=== PATIENT | male | born 1990 | race Caucasian/White ===

== ENCOUNTER 2022-12-28 21:53 | Emergency (ER) | payer SELFPAY ==
[2022-12-28] VITALS (7 sets, daily range): BP systolic 130–154; BP diastolic 78–98; PULSE 92–132; RESP 18–22; TEMP 36.7–37.1; O2SAT 96–100
--- NOTE | 2022-12-28 21:58 | ECG_ITS ---
Measurements Intervals [place] Rate: 114 P: 66 AR: 123 QRS: 36 QRSD: 101 T: 30 QT: 337 QTc: 464 Interpretive Statements SINUS TACHYCARDIA ABNORMAL RHYTHM ECG NO PREVIOUS ECG AVAILABLE FOR COMPARISON Electronically Signed On 12-29-2022 9:16:37 CDT by Shan Randolph M.D.
[2022-12-28] MEDS: ALPRAZolam (*CRX) 0.5 MG TABLET PO (22:13)
[2022-12-28] MEDS: SODIUM CHLORIDE 0.9% IV 1,000 ML 999 ML IV CONT (22:17)
--- NOTE | 2022-12-28 22:17 | PC.NURSE ---
Suri, in lab was called and made aware of orders at [id number]
[2022-12-28 22:34] LABS: Basophils Absolute Auto 0.07 K/mm3 (0.00-0.10); Basophils Percent Auto 1.2 % (0.0-1.0); Eosinophils Absolute Auto 0.15 K/mm3 (0.02-0.50); Eosinophils Percent Auto 2.5 % (1.0-6.0); Hematocrit 42.4 % (40.0-54.0); Hemoglobin 14.8 g/dL (14.0-18.0); Immature Granulocyte Absolute 0.02 K/mm3 (0.00-0.00); Immature Granulocyte Percent A 0.3 % (0.0-0.0); Lymphocytes Absolute Auto 1.65 K/mm3 (1.10-4.50); Lymphocytes Percent Auto 27.2 % (18.0-42.0); Mean Corpuscular HGB Conc 34.9 g/dL (32.0-36.0); Mean Corpuscular Hemoglobin 32.4 pg (27.0-31.0); Mean Corpuscular Volume 92.8 fL (78.0-102.0); Mean Platelet Volume 8.4 fl (8.7-11.0); Monocytes Absolute Auto 0.64 K/mm3 (0.10-0.90); Monocytes Percent Auto 10.6 % (2.0-11.0); Neutrophils Absolute Auto 3.5 K/mm3 (1.7-7.2); Neutrophils Percent Auto 58.2 % (50.0-70.0); Platelet Count Result 348 K/mm3 (150-420); Red Blood Count 4.57 M/mm3 (4.70-6.10); Red Cell Distribution Width 12.5 % (11.6-14.4); White Blood Count 6.1 K/mm3 (4.8-10.8)
[2022-12-28] MEDS: METOPROLOL TARTRATE 50 MG TAB PO (22:38)
[2022-12-28 22:52] LABS: Alanine Aminotransferase 51 U/L (16-63); Albumin Level 4.1 g/dL (3.4-5.0); Alkaline Phosphatase 84 U/L (46-116); Anion Gap 15 mmol/L (8-16); Aspartate Amino Transferase 35 U/L (15-37); Bilirubin,Total 0.7 mg/dL (0.00-1.00); Blood Urea Nitrogen 6 mg/dL (7-18); Calcium 8.7 mg/dL (8.5-10.1); Carbon Dioxide 24 mmol/L (21-32); Chloride 100 mmol/L (98-108); Estimated CRCL calculation 104 ml/min; Estimated Glomerular Filt Rate > 60; Glucose 83 mg/dL (70-99); Osmolality Calculated 284 mOsm/kg (285-295); Sodium 139 mmol/L (136-145); Total Protein 7.1 g/dL (6.4-8.2); Troponin I 5.7 ng/L (0.00-60.4)
--- NOTE | 2022-12-28 23:02 | ED.ARRPALP ---
HPI - Arrhythmia/Palpitations General Chief Complaint: Arrhythmia/Palpitations Stated Complaint: Anxiety Source: patient and family Mode of arrival: ambulatory Limitations: no limitations History of Present Illness HPI narrative: this is a 32-year-old male presents with rapid heart rate around 114 with some anxiety, with no chest pain no shortness of breath no pain no fever chills. The patient states that he has been on antidepressants and has a history anxiety and depression but has been out of his antianxiety and antidepressants. complaint: rapid heart beat Onset (ago): hour(s) Duration: constant Severity: mild Context: occurred during rest Associated symptoms: anxiety Related Data Allergies Allergy/AdvReac Type Severity Reaction Status Date / Time No Known Allergies Allergy Verified 12/28/22 21:58 Review of Systems Review of Systems: All systems reviewed & are unremarkable except as noted in HPI and below PMFSH Past Medical History Medical History Depression with anxiety Exam Const: General: healthy appearing Nutritional Appearance: well nourished Orientation/consciousness: patient oriented x3 Limitations: no limitations Neck: Neck: normal visual inspection, no lymphadenopathy and no meningeal signs Chest: Chest palpation & inspection: normal inspection of the chest Resp: Effort & Inspection: normal respiratory effort Auscultation: clear to auscultation bilaterally Cardio: Rate: tachycardic Rhythm: regular rhythm GI: GI Palp: Yes Soft to palpation Skin: General skin exam: normal color Rashes: no rashes Wounds: no wounds Neuro: General: patient oriented x3 and moves all extremities Extrem: General: normal to inspection and no clubbing, cyanosis or edema Psych: Mental Status: mental status grossly normal Affect: Anxious affect present Course Course Emergency Course: EKG showed sinus tachycardia with rate of 14, patient's blood pressure was elevated at 140 7/95, patient anxious and received 0.5mg of Xanax and patient after reassessment felt much better but heart rate still about 105 and received a dose of 50mg metoprolol. Patient had lab work including troponins that was negative, his CMP showed that his potassium was 3.0 and patient received a dose of p.o. potassium. Vital Signs Vital signs: Vital Signs Temperature 37.1 C 12/28/22 21:55 Pulse Rate 116 H 12/28/22 21:55 Respiratory Rate 19 12/28/22 21:55 Blood Pressure 147/95 H 12/28/22 21:55 Pulse Oximetry 99 12/28/22 21:55 Oxygen Delivery Room Air 12/28/22 21:55 Temperature 37.1 C 12/28/22 21:55 Pulse Rate 97 12/28/22 22:53 Respiratory Rate 22 H 12/28/22 22:53 Blood Pressure 136/78 12/28/22 22:53 Pulse Oximetry 96 12/28/22 22:53 Oxygen Delivery Room Air 12/28/22 22:53 MDM - Arrhythmia/Palpitations Lab Data 12/28/22 22:30 12/28/22 22:30 Labs: Lab Results 12/28/22 Range/Units 22:30 WBC 6.1 (4.8-10.8) K/mm3 RBC 4.57 L (4.70-6.10) M/mm3 Hgb 14.8 (14.0-18.0) g/dL Hct 42.4 (40.0-54.0) % MCV 92.8 (78.0-102.0) fL MCH 32.4 H (27.0-31.0) pg MCHC 34.9 (32.0-36.0) g/dL RDW 12.5 (11.6-14.4) % Plt Count 348 (150-420) K/mm3 MPV 8.4 L (8.7-11.0) fl Immature Gran % (Auto) 0.3 H (0.0-0.0) % Neut % (Auto) 58.2 (50.0-70.0) % Lymph % (Auto) 27.2 (18.0-42.0) % [place] % (Auto) 10.6 (2.0-11.0) % Eos % (Auto) 2.5 (1.0-6.0) % Baso % (Auto) 1.2 H (0.0-1.0) % Lymph # (Auto) 1.65 (1.10-4.50) K/mm3 [place] # (Auto) 0.64 (0.10-0.90) K/mm3 Eos # (Auto) 0.15 (0.02-0.50) K/mm3 Baso # (Auto) 0.07 (0.00-0.10) K/mm3 Abs Immat Gran (auto) 0.02 H (0.00-0.00) K/mm3 Absolute Neuts (auto) 3.5 (1.7-7.2) K/mm3 Absolute Nucleated RBC 0.00 (0.00-0.00) K/mm3 Nucleated RBC % 0.0 (0-0.0) % Sodium 139 (136-145) mmol/L Potassium 3.0 L (3.5-5.1) mmol/L Chloride
[2022-12-28] MEDS: POTASSIUM BICARBONATE 25 MEQ TABEF 50 MEQ PO (23:05)
== END 2022-12-28 23:17 | disposition home or self-care (01) ==
PROVIDERS: Emergency Provider Emergency Medicine
DX: R00.2 Palpitations (principal); F41.9 Anxiety disorder, unspecified; E87.6 Hypokalemia; F32.A Depression, unspecified
CPT/HCPCS: 36415; 80053; 84484; 85025; 93005; 96360; 99284; A9270; J7030

== ENCOUNTER 2024-02-14 14:43 | Emergency (ER) | payer OTHER, SELFPAY ==
--- NOTE | ~2024-02-14 | CT_ITS ---
EXAMINATION: CT abdomen pelvis w con DATE: 02/14/2024 16:19 INDICATION: epigastric abdominal pain/nausea/vomiting/diarrhea x1 week TECHNIQUE: Computed tomography (CT) of the abdomen and pelvis was performed with 100 mL Omnipaque-350 intravenous contrast. Automated exposure control and iterative reconstruction technique were employe d. The dose-length product was 268.79 mGy-cm. COMPARISON: None. FINDINGS: Lower thorax: Right lower lobe granuloma/hamartoma. Liver: Normal. Biliary/Gallbladder: Mildly distended gallbladder. No wall thickening or inflammatory change. No ston es detected. No bile duct dilation. Pancreas: No mass or duct dilation. Spleen: Multiple subcentimeter hypodensities likely representing cysts or hemangiomas. Adrenals:No mass. Kidneys: No suspicious mass, obstructing stone, or hydronephrosis. GI tract: Mild distal esophageal and gastric wall edema. No small or large bowel dilation. Appendix i s not confidently identified and may be surgically absent. No inflammatory process in the right lower quadrant. Mesentery/Peritoneum: No ascites, mass, or free air. Retroperitoneum: No mass. Pelvis: Pelvic organs are within normal limits. Soft Tissues: Small fat-containing right inguinal hernia. Large right hydrocele. Bones: No acute osseous finding. IMPRESSION: Gallbladder hydrops, may be secondary to fasting or obstruction. Correlate with biliary labs and symp toms of right upper quadrant pain. Mild esophagitis/gastritis. Large right hydrocele. Reviewed, dictated and finalized at location [facility] OF ENGLISH IMPRESSION: Gallbladder hydrops, may be secondary to fasting or obstruction. Correlate with biliary labs and symptoms of right upper quadrant pain. Mild esophagitis/gastritis. Large right hydrocele.
[2024-02-14 14:43] VITALS: BP 129/94; PULSE 102; RESP 18; TEMP 36.5; O2SAT 98
--- NOTE | 2024-02-14 14:54 | ECG_ITS ---
Test Date: 2024-02-14 15:11:39 Measurements Intervals [place] Rate: 92 P: 67 DE: 145 QRS: 56 QRSD: 98 T: 48 QT: 335 QTc: 414 Interpretive Statements SINUS RHYTHM BASELINE ARTIFACT- I, III, AVR, AVL, AVF, V1, V4-V6 NORMAL ECG No previous ECG available for comparison Electronically Signed On 02-14-2024 16:38:41 DECORATING [employer]PERATOR by Elpidio Ovalles D.O.
[2024-02-14] MEDS: PANTOPRAZOLE SODIUM IV 40 MG VIAL IV PUSH (15:21)
[2024-02-14] MEDS: MORPHINE SULFATE (*CRX) 4 MG/ML INJ IV PUSH (15:23)
[2024-02-14] MEDS: SODIUM CHLORIDE 0.9% IV 1,000 ML 999 ML IV CONT (15:23)
[2024-02-14] MEDS: ONDANSETRON INJ 4 MG/2 ML VIAL IV PUSH (15:24)
[2024-02-14 15:37] LABS: Basophils Absolute Auto 0.03 K/mm3 (0.00-0.10); Basophils Percent Auto 0.5 % (0.0-1.0); Eosinophils Absolute Auto 0.04 K/mm3 (0.02-0.50); Eosinophils Percent Auto 0.6 % (1.0-6.0); Hematocrit 45.8 % (40.0-54.0); Hemoglobin 15.6 g/dL (14.0-18.0); Immature Granulocyte Absolute 0.01 K/mm3 (0.00-0.00); Immature Granulocyte Percent A 0.2 % (0.0-0.0); Lymphocytes Absolute Auto 1.87 K/mm3 (1.10-4.50); Lymphocytes Percent Auto 29.9 % (18.0-42.0); Mean Corpuscular HGB Conc 34.1 g/dL (32-36); Mean Corpuscular Hemoglobin 31.6 pg (27.0-31.0); Mean Corpuscular Volume 92.7 fL (78.0-102.0); Mean Platelet Volume 9.3 fl (8.7-11.0); Monocytes Absolute Auto 0.43 K/mm3 (0.10-0.90); Monocytes Percent Auto 6.9 % (2.0-11.0); Neutrophils Absolute Auto 3.88 K/mm3 (1.70-7.20); Neutrophils Percent Auto 61.9 % (50.0-70.0); Platelet Count Result 292 K/mm3 (150-420); Red Blood Count 4.94 M/mm3 (4.70-6.10); Red Cell Distribution Width 12.1 % (11.6-14.4); White Blood Count 6.3 K/mm3 (4.8-10.8)
--- NOTE | 2024-02-14 15:37 | PC.NURSE ---
pts brother at nurses station. states pt not feeling well after medications administered. explained all medications to pt and confirmed no allergies. explained all medications, risks of side effects to brother, voiced understanding.
[2024-02-14 15:41] LABS: Add Urine Microscopic? YES; Appearance Urine Clear (Clear); Bilirubin Urine Negative (Negative); Blood Urine Negative (Negative); Color Urine Yellow (Yellow); Glucose Urine UA Negative (Negative); Ketones Urine Trace (Negative); Leukocyte Esterase Ur Negative LEU/UL (Negative); Nitrate Urine Negative (Negative); Protein Urine 1+ (Negative); Urobilinogen Urine 0.2 mg/dL (0.2-1.0)
[2024-02-14 15:44] LABS: Amphetamine Screen Urine Negative (Negative); Barbiturate Screen Urine Negative (Negative); Benzodiazepines Screen Urine Negative (Negative); Cannabinoid Screen Urine Positive (Negative); Cocaine Screen Urine Negative (Negative); Methadone Screen Urine Negative (Negative); Opiate Screen Urine Negative (Negative); Phencyclidine Screen Urine Negative (Negative)
[2024-02-14 15:48] LABS: INR 0.9; Partial Thromboplastin Time 28.5 Sec (23.9-30.70); Prothrombin Time 10.5 Seconds (9.50-12.1)
[2024-02-14 15:50] LABS: Alanine Aminotransferase 60 U/L (16-63); Alkaline Phosphatase 89 U/L (46-116); Anion Gap 11 mmol/L (4-12); Aspartate Amino Transferase 53 U/L (15-37); Bilirubin,Total 0.6 mg/dL (0.00-1.00); Blood Urea Nitrogen 7 mg/dL (7-18); Calcium 8.4 mg/dL (8.5-10.1); Carbon Dioxide 27 mmol/L (21-32); Chloride 101 mmol/L (98-108); Estimated CRCL calculation 98 ml/min; Estimated Glomerular Filt Rate > 60; Glucose 91 mg/dL (70-99); Lipase 32 U/L (16-77); Osmolality Calculated 286 mOsm/kg (285-295); Potassium 3.7 mmol/L (3.5-5.1); Sodium 139 mmol/L (136-145); Total Protein 7.4 g/dL (6.4-8.2)
[2024-02-14 15:57] LABS: Ethanol 307 mg/dL (0-6)
[2024-02-14 15:58] LABS: Lactic Acid Reflex 1.9 mmol/L (0.4-2.0)
[2024-02-14 16:03] LABS: Mucus Urine Heavy /lpf
--- NOTE | 2024-02-14 16:06 | PC.NURSE ---
pt to xray per wheelchair with xray staff.
--- NOTE | 2024-02-14 16:14 | PC.NURSE ---
pt return to room from xray
[2024-02-14 16:24] VITALS: BP 141/64; PULSE 117; RESP 18; O2SAT 93
[2024-02-14 16:30] VITALS: BP 127/84; PULSE 84; RESP 20; TEMP 36.8; O2SAT 94
[2024-02-14 16:31] VITALS: O2SAT 95
--- NOTE | 2024-02-14 16:35 | ED_ITS ---
HPI - Nausea/Vomiting/Diarrhea General Chief complaint: Nausea/Vomiting/Diarrhea Stated complaint: abdominal pain Time Seen by Provider: 02/14/24 14:47 Source: patient Mode of arrival: ambulatory Limitations: no limitations History of Present Illness HPI Narrative: this is a 33-year-old male with a history of chronic alcohol abuse presents with nausea vomiting and epigastric abdominal pain has been ongoing for the last couple of weeks and others currently no fever chills no chest pain no shortness of breath no diarrhea or constipation no flank pain no hematuria. MD elicited complaint: nausea, vomiting and abdominal pain Onset (ago): week(s) Description of vomiting: watery Related Data Allergies Allergy/AdvReac Type Severity Reaction Status Date / Time No Known Allergies Allergy Verified 12/28/22 21:58 Review of Systems 2 Review of Systems: All systems reviewed & are unremarkable except as noted in HPI and below PMFSH Past Medical History Medical History Depression with anxiety Exam Const: General: no acute distress Nutritional Appearance: well nourished Orientation/consciousness: patient oriented x3 Limitations: no limitations Eyes: Conjunctivae: conjunctivae normal Neck: Neck: normal visual inspection, no lymphadenopathy and no meningeal signs Chest: Chest palpation & inspection: normal inspection of the chest Resp: Effort & Inspection: normal respiratory effort Auscultation: clear to auscultation bilaterally Cardio: Rate: regular rate Rhythm: regular rhythm GI: GI Palp: Yes Soft to palpation Auscultation: normal bowel sounds : General: Yes bladder normal to palpation Urinary Catheter: Urinary Catheter: patent and draining Back/Spine/Pelvis: Back: no CVA tenderness Skin: General skin exam: normal color Rashes: no rashes Wounds: no wounds Neuro: General: patient oriented x3, moves all extremities, no meningeal signs and no focal motor deficits Course Course Emergency Course: CT scan shows some esophagitis and gastritis, alcohol level as elevated with a normal lipase patient received morphine IV Zofran and IV Protonix. Labs reviewed showed within normal range liver function test and total bilirubin in the normal range. Vital Signs Vital signs: Vital Signs Temperature 36.5 C 02/14/24 14:43 Pulse Rate 102 H 02/14/24 14:43 Respiratory Rate 18 02/14/24 14:43 Blood Pressure 129/94 H 02/14/24 14:43 Pulse Oximetry 98 02/14/24 14:43 Oxygen Delivery Room Air 02/14/24 14:43 Temperature 36.5 C 02/14/24 14:43 Pulse Rate 117 H 02/14/24 16:24 Respiratory Rate 18 02/14/24 16:24 Blood Pressure 141/64 H 02/14/24 16:24 Pulse Oximetry 93 02/14/24 16:24 Oxygen Delivery Room Air 02/14/24 14:43 MDM - Nausea/Vomiting/Diarrhea Lab Data 02/14/24 15:24 02/14/24 15:24 Labs: Lab Results 02/14/24 Range/Units 15:24 WBC 6.3 (4.8-10.8) K/mm3 RBC 4.94 (4.70-6.10) M/mm3 Hgb 15.6 (14.0-18.0) g/dL Hct 45.8 (40.0-54.0) % MCV 92.7 (78.0-102.0) fL MCH 31.6 H (27.0-31.0) pg MCHC 34.1 (32-36) g/dL RDW 12.1 (11.6-14.4) % Plt Count 292 (150-420) K/mm3 MPV 9.3 (8.7-11.0) fl Immature Gran % (Auto) 0.2 H (0.0-0.0) % Neut % (Auto) 61.9 (50.0-70.0) % Lymph % (Auto) 29.9 (18.0-42.0) % [place] % (Auto) 6.9 (2.0-11.0) % Eos % (Auto) 0.6 L (1.0-6.0) % Baso % (Auto) 0.5 (0.0-1.0) % Lymph # (Auto) 1.87 (1.10-4.50) K/mm3 [place] # (Auto) 0.43 (0.10-0.90) K/mm3 Eos # (Auto) 0.04 (0.02-0.50) K/mm3 Baso # (Auto) 0.03 (0.00-0.10) K/mm3 Abs Immat Gran (auto) 0.01 H (0.00-0.00) K/mm3 Absolute Neuts (auto) 3.88 (1.70-7.20) K/mm3 Absolute Nucleated RBC 0.00 (0.00-0.00) K/mm3 Nucleated RBC % 0.0 (0-0.0) % PT 10.5 (9.50-12.1) Seconds INR 0.9 APTT 28.5 (23.9-30.70) Sec Sodium 139 (136-145) mmol/L Potassium 3.7 (3.5-5.1) mmol/L Chloride 101 (98-108) mmol/L Carbon Dioxide 27 (21-32) mmol/L Anion Gap 11 (4-12) mmol/L BUN 7 (7-18) mg/dL Creatinine 0.82 (0.70-1.30) mg/dL Estim Creat Clear Calc 98 ml/min Estimated GFR > 60 (59 - ) Glucose 91 (70-99) mg/dL Calculated Osmolality 286 (285-295) mOsm/kg Lactic Acid 1.9 (0.4-2.0) mmol/L Calcium 8.4 L (8.5-10.1) mg/dL Total Bilirubin 0.6 (0.00-1.00) mg/dL AST 53 H (15-37) U/L ALT 60 (16-63) U/L Alkaline Phosphatase 89 (46-116) U/L Total Protein 7.4 (6.4-8.2) g/dL Albumin 4.0 (3.4-5.0) g/dL Lipase 32 (16-77) U/L Urine Color Yellow (Yellow) Urine Appearance Clear (Clear) Urine pH 7.0 (5.0-8.0) Ur Specific [place] 1.020 (1.010-1.020) Urine Protein 1+ H (Negative) Urine Glucose (UA) Negative (Negative) Urine Ketones Trace H (Negative) Ur Blood (Man) Negative (Negative) Urine Nitrate Negative (Negative) Urine Bilirubin Negative (Negative) Urine Urobilinogen 0.2 (0.2-1.0) mg/dL Leukocyte Esterase Rfl Negative (Negative) MILO/UL Urine Mucus Heavy H /lpf Urine Opiates Screen Negative (Negative) Urine Methadone Screen Negative (Negative) Ur Barbiturates Screen Negative (Negative) Ur Phencyclidine Scrn Negative (Negative) Ur Amphetamine Screen Negative (Negative) U Benzodiazepines Scrn Negative (Negative) Urine Cocaine Screen Negative (Negative) U Cannabinoids Screen Positive A (Negative) Ethyl Alcohol 307 H* (0-6) mg/dL Critical Care Time Critical Care Time Critical Care Time: No Discharge Plan Discharge Clinical Impression: Esophagitis Gastritis Qualifiers: Gastritis type: alcoholic Chronicity: acute Gastritis bleeding: without bleeding Qualified Code(s): K29.20 - Alcoholic gastritis without bleeding Patient Disposition: Home, Self-Care Condition: Stable Instructions: Antibiotic Form, Gastritis (ED), Esophagitis (ED) Additional Instructions: advised take medication as prescribed and follow up with primary within 1 week for further evaluation and treatment. Prescriptions: New ondansetron 4 mg tablet,disintegrating 4 mg PO Q6H PRN (Reason: nausea and vomiting) Qty: 14 0RF pantoprazole [Protonix] 40 mg tablet,delayed release (DR/EC) 40 mg PO QAM 28 Days Qty: 28 0RF Follow-up/Referrals: UNKNOWN,DOCTOR [Primary Care Provider] - Time of Disposition: 16:40
--- NOTE | 2024-02-14 16:51 | PC.NURSE ---
dr referral list given to pt.
--- NOTE | 2024-02-16 12:26 | PC.NURSE ---
PRELIMINARY BLOOD CULTURE: NO GROWTH TO DATE.
== END 2024-02-14 16:44 | disposition home or self-care (01) ==
PROVIDERS: Emergency Provider Emergency Medicine
DX: K20.90 Esophagitis, unspecified without bleeding (principal); K29.20 Alcoholic gastritis without bleeding
CPT/HCPCS: 36415; 74177; 80053; 80307; 81001; 82077; 83605; 83690; 85025; 85610; 85730; 87040; 93005; 96361; 96374; 96375; 99284; J2270; J2405; J2470; J7030; Q9967

== ENCOUNTER 2025-01-19 19:42 | Emergency (ER) | payer OTHER, SELFPAY ==
[2025-01-19 19:42] VITALS: BP 145/87; PULSE 102; RESP 19; TEMP 36.2; O2SAT 100
[2025-01-19 19:45] VITALS: BP 145/87; PULSE 101; RESP 18; TEMP 36.6; O2SAT 100
--- NOTE | 2025-01-19 19:50 | ED.BACK ---
HPI - Back Pain/Injury General Chief Complaint: Back Pain/Injury Stated Complaint: back pain Time Seen by Provider: 01/19/25 19:46 Source: patient Mode of arrival: ambulatory Limitations: no limitations History of Present Illness HPI Narrative: 34 year old male presents to the Emergency Department complaining of low back pain. Onset several weeks ago. Denies trauma. Patient states he does a lot of heavy lifting at work. Patient's father told him his back pain could be from his kidneys. Denies any urinary tract symptoms. No known exacerbating or alleviating factors. No numbness or tingling. Sometimes has some pain into buttock and hip. MD elicited complaint: back pain Onset (ago): week(s) (several) Quality: aching and spasming Location: lumbar spine Radiation: buttocks Exacerbating factors: none Relieving factors: none Associated symptoms: denies other symptoms Related Data Allergies Allergy/AdvReac Type Severity Reaction Status Date / Time No Known Allergies Allergy Verified 01/19/25 20:09 Review of Systems Review of Systems: All systems reviewed & are unremarkable except as noted in HPI and below Constitutional: Constitutional: Reports as per HPI, Denies chills and Denies fever(s) Eyes: Eyes: Reports as per HPI ENT: Reports system reviewed and no additional complaints, except as documented Cardiovascular: Cardiovascular: Reports as per HPI and Denies chest pain Respiratory: Respiratory: Reports as per HPI and Denies dyspnea Gastrointestinal: Gastrointestinal: Reports as per HPI, Denies abdominal pain, Denies diarrhea, Denies nausea and Denies vomiting Genitourinary: Genitourinary: Reports no additional male genitourinary complaints, Denies dysuria, Denies testicular pain and Denies urinary frequency Musculoskeletal: Musculoskeletal: Reports no additional musculoskeletal complaints, Reports as per HPI and Reports back pain Integumentary/Breasts: Skin/Breast: Reports system reviewed and no additional complaints, except as docu Neurologic: Reports system reviewed and no additional complaints, except as documented Psychiatric: Psychiatric: Reports no additional psychiatric complaints Endocrine: Endocrine: Reports no additional endocrine complaints Hematologic/Lymphatic: Hematologic/Lymphatic: Reports no additional hematologic/lymphatic complaints Allergic/Immunologic: Allergic/Immunologic: Reports no additional allergic/immunologic complaints PMFSH Past Medical History Medical History Depression with anxiety Exam Const: General: healthy appearing Nutritional Appearance: well nourished Orientation/consciousness: patient oriented x3 Limitations: no limitations HENMT: Head: normal to inspection Ears: external ears normal Face/Nose/Sinus: Normal external nose present Face and sinus: normal facial exam Eyes: Pupils: Equal, round and reactive pupils present EOM: EOMs intact bilaterally Direct Ophthalmoscopy: no photophobia Neck: Neck: normal visual inspection Chest: Chest palpation & inspection: normal inspection of the chest Resp: Effort & Inspection: normal respiratory effort Auscultation: clear to auscultation bilaterally Cardio: Rate: regular rate Rhythm: regular rhythm GI: Inspection: non-distended GI Palp: Yes Soft to palpation and No Tenderness to palpation present (GI) : General: Yes bladder normal to palpation Back/Spine/Pelvis: Back: no CVA tenderness Skin: General skin exam: normal color Rashes: no rashes Wounds: no wounds Neuro: General: patient oriented x3, moves all extremities, no meningeal signs, no focal motor deficits and CN's II-XI intact bilaterally Cranial nerves: Yes Nystagmus not present Speech: normal speech Gait exam (Neuro): Normal gait present Extrem: General: normal to inspection Other: negative straight leg raise bilaterally Course Course Emergency Course: 34 y/o male presents to the ED c/o low back pain. Onset several weeks ago. No trauma. Does a lot of heavy lifting at work. Denies urinary tract symptoms. PE: no acute findings UA: *reviewed and discussed results with patient. Discussed further management. Patient voices understanding and agreement. Rx and Instructions Vital Signs Vital signs: Vital Signs Temperature 36.6 C 01/19/25 19:45 Pulse Rate 101 H 01/19/25 19:45 Respiratory Rate 18 01/19/25 19:45 Blood Pressure 145/87 H 01/19/25 19:45 Pulse Oximetry 100 01/19/25 19:45 Oxygen Delivery Room Air 01/19/25 19:45 Temperature 36.6 C 01/19/25 19:45 Pulse Rate 101 H 01/19/25 19:45 Respiratory Rate 18 01/19/25 19:45 Blood Pressure 145/87 H 01/19/25 19:45 Pulse Oximetry 100 01/19/25 19:45 Oxygen Delivery Room Air 01/19/25 19:45 Discharge Plan Discharge Clinical Impression: Low back pain, Strain of lumbar region, Sciatica Patient Disposition: Home Condition: Stable Instructions: Sciatica (ED), Low Back Strain (ED), Acute Low Back Pain (ED) Additional Instructions: Rest back Moist heat Take medications as presscribed Follow up Primary Care Provider Patient Language: Micronesian Prescriptions: New cyclobenzaprine 10 mg tablet 10 mg PO TID PRN (Reason: muscle spasm) Qty: 20 0RF prednisone 10 mg tablet 10 mg PO DIRECTED Qty: 21 0RF Rx Instructions: Day 1: 6 tabs, Day 2: 5 tabs, Day 3: 4 tabs, Day 4: 3 tabs, Day 5: 2 tabs, Day 6: 1 tab tramadol 50 mg tablet 50 mg PO Q6H PRN (Reason: pain) Qty: 20 0RF No Action ondansetron 4 mg tablet,disintegrating 4 mg PO Q6H PRN (Reason: nausea and vomiting) Qty: 14 0RF pantoprazole [Protonix] 40 mg tablet,delayed release (DR/EC) 40 mg PO QAM 28 Days Qty: 28 0RF Follow-up/Referrals: Marni,Josue Pedraza NP [Primary Care Provider, Family Practice] Time of Disposition: 20:36
[2025-01-19 20:11] LABS: Add Urine Microscopic? NO; Appearance Urine Clear (Clear); Glucose Urine UA Negative (Negative); Leukocyte Esterase Ur Negative LEU/UL (Negative); Nitrate Urine Negative (Negative); Specific Grav Ur >= 1.030 (1.010-1.020)
--- OUTSIDE RECORDS SUMMARY | 2025-01-19 20:36 | XMS_ITS | Clinical Summary ---
Author Organization [facility] Address [address] [place] [id number] Care Team Providers Care Lathe Operator Contact Lens Name Role Phone None, Provider MD Primary Care Provider Unavaila ble Allergies No known active allergies Medications No known medications Active Problems Problem Noted Date Diagnosed Date Alcohol withdrawal 06/26/2024 Social History Tobacco Use Types Packs/Day Years Used Date Smoking Tobacco: Every Day Cigarettes Tobacco Cessation:Ready to Q uit: Not Asked; Counseling Given: Not Answered B1300 Health Literacy Answer Date Recor ded How often do you need to hav e someone help you when you read instructions, pamphlets, or other written material from your doctor or pharmacy? Never 06/26/2024 [facility] Utilities Answer Date Recorded In the past 12 months has [facility], gas, oil, or water [employer] threatened to shut off services in your home? No 06/26/2024 Humiliation, Afraid, Rape, and Kick questionnair e Answer Date Recorded Within the last year, have y ou been afraid of your partner or ex-partner? No 06/26/2024 Within the last year, have y ou been humiliated or emotionally abused in other ways by your partner or ex-partner? No Within the last year, have y ou been kicked, hit, slapped, or otherwise physically hurt by your partner or ex-partner? No 06/26/2024 Within the last year, have y ou been raped or forced to have any kind of sexual activity by your partner or ex-partner? No 06/26/2024 Social Connection and Isolation Panel Answer Date Recorded In a typical week, how many times do you talk on the phone with family, friends, or neighbors? More than three times a week 06/26/2024 How often do you get togethe r with friends or relatives? Once a week 06/26/2024 How often do you attend chur ch or jain services? More than 4 times per year 06/26/2024 Do you belong to any clubs o r organizations such as druze groups, unions, fraternal or athletic groups, or school groups? No 06/26/2024 How often do you attend meet ings of the clubs or organizations you belong to? Never 06/26/2024 Are you , , di vorced, , never , or living with a partner? Never 06/26/2024 AUDIT-C Answer Date Recorded Q1: How often do you have a drink containing alcohol? 4 or more times a week 06/26/2024 Q2: How many drinks containi ng alcohol do you have on a typical day when you are drinking? 10 or more Q3: How often do you have si x or more drinks on one occasion? Daily or almost daily 06/26/2024 Overall Financial Resource Strain (CARDIA) Answe r Date Recorded How hard is it for you to pa y for the very basics like food, housing, medical care, and heating? Somewhat hard 06/26/2024 [facility] - Occupational Stress Questionnaire Answer Date Recorded Do you feel stress - tense, restless, nervous, or anxious, or unable to sleep at night because your mind is troubled all the time - these days? Very much 06/26/2024 Exercise Vital Sign Answer Date Recorde d On average, how many days pe r week do you engage in moderate to strenuous exercise (like a brisk walk)? 3 days 06/26/2024 On average, how many minutes do you engage in exercise at this level? 30 min 06/26/2024 Hunger Vital Sign Answer Date Recorded Within the past 12 months, y ou worried that your food would run out before you got the money to buy more. Never true 06/27/19 25 Within the past 12 months, t he food you bought just didn't last and you didn't have money to get more. Never true 06/26/2024 PRAPARE - Transportation Answer Date Re corded In the past 12 months, has l ack of transportation kept you from medical appointments or from getting medications? No 05/30 In the past 12 months, has l ack of transportation kept you from meetings, work, or from getting things needed for daily living? No 06/26/2024 Housing Stability Vital Sign Answer [place] e Recorded In the last 12 months, was t here a time when you were not able to pay the mortgage or rent on time? Yes 06/26/2024 In the past 12 months, how m any times have you moved where you were living? 2 06/26/2024 At any time in the past 12 m [facility], were you homeless or living in a fdc (including now)? No 06/26/2024 Sex and Gender Information Value Date Recorded Sex Assigned at Male 06/26/2024 1:21 AM CDT Legal Sex Male 11:55 AM CDT Gender Identity Male 06/26/2024 1:21 AM CDT Sexual Orientation Not on file Last Filed Vital Signs Vital Sign Reading Time Taken Comments Blood Pressure 125/77 06/30/2024 5:59 PM CDT Pulse 105 06/30/2024 5:59 PM CDT Temperature 36.7 C (98.1 F) 06/30/2024 5:59 PM CDT Respiratory Rate 16 06/30/2024 5:59 PM CDT Oxygen Saturation 99% 06/30/2024 5:59 PM CDT Inhaled Oxygen Concentration - - Weight 70 kg (154 lb 5.2 oz) 06/30/2024 5:59 PM CDT Height 162.6 cm (5' 4) 06/30/2024 5:59 PM CDT Body Mass Index 26.49 06/30/2024 5:59 PM CDT Plan of Treatment Health Maintenance Due Date Last Done Comments Annual Physical 10/12/1994 Hepatitis C 10/12/2009 Pneumococcal Vaccine: Pediatrics (0 to 5 Years) and At-Risk Patients (6 to 49 Years) (1 of 2 - PCV) 10/12/2010 HPV Vaccines (1 - 3-dose SCDM series) 10/12/2018 COVID-19 Vaccine (1 - season) 2024 Influenza Adult (#1) 2024 DTaP, Tdap and Td Vaccines (8 - Td or Tdap) 03/25/2032 03/25/2022, 10/31/2019, 08/19/2005, Additional history exists Hepatitis B Vaccines Completed 05/18/1992, 03/02/1992, 1991 Hepatitis A Vaccines Aged Out No long er eligible based on patient's age to complete this topic Meningococcal B Vaccine Aged Out No l onger eligible based on patient's age to complete this topic Meningococcal Vaccine Aged Out No graham lupe eligible based on patient's age to complete this topic RSV Immunizations Under 20 Months Aged Out No longer eligible based on patient's age to complete this topic Goals Goal Patient Goal Type Associated Problems Recent Progress Patient-Stated? Author Patient will return to prior living situation and remain independent in ADLs upon discharge from hospital Lifestyle Yes Linn Dickson, DUYEN Interventions Community Resource Recommendations Community Resource Services Recommended Domains Addressed Status Status Reason/Outcome Date/Time [facility] - Out in Recovery Addiction Outpatient Treatment, Substance Use Counseling, Substance Use Services Alcohol Use, Tobacco Use Recommended 10/18/2024 9:50 PM CDT from Last 12 Months Insurance MEDICAID Advance Directives * Full Code (Latest Code Status on File) Date Activated Date Inactivated Comments 06/26/2024 12:31 AM 06/28/2024 1:40 PM Care Teams Lathe Operator Contact Lens Relationship Specialty Start Date End Date None, Provider, MD PCP - General UNKNOWN PHYSICIAN SPECIALTY 06/25/24
--- OUTSIDE RECORDS SUMMARY | 2025-01-19 20:36 | XMS_ITS | Patient Health Record ---
Author Organization [facility] Address [address] [place] [address] Care Team Providers Care Scout Professional Sports Name Role Phone Julio Medel Primary Care Provider Allergies No Known Allergies Results Component Value Reference Range Notes X ray : Dental, PA - First Reviewed date:08/05/2024 10:38:38 AM Interpretation: Performing Lab: Notes/Report: Reason For Referral Reason Oral Surgery for too th #1 Diagnosis 1 Dental examination ( Z01.20) Referral Organization [facility] Guillaume ental Referring Provider First Name Julio Referring Provider Last Name Gianfranco Referring Provider Speciality Dental Gen eral Practice Referral Priority Routine Medications Medication SIG (Take, Route, Frequency, Duration) Notes Start Date End Date Status Vyvanse Active traZODone HCl Active Lexapro Active Nexterone Active Vistaril Active Vital Signs Blood pressure diastolic 84 mm Hg 08/05/2024 Blood pressure systolic 130 mm Hg 08/05/2024 Encounters Encounter Location Date Provider Diagnosis [address] [id number] 08/05/2024 Julio Medel Dental examination Z01.20 Assessments Encounter Date Diagnosis (ICD Code) Assessment Notes Treatment Notes Treatment Clinical Notes Section Notes 08/05/2024 Dental examination (ICD-10 - Z01.20) Plan Of Treatment No Information Insurance Providers Payer Name Payer Address Payer Phone Subscriber Number Group Number Insured Name Patient Relationship to Insured Coverage Start Date Coverage End Date Dental Blue Care PPO [address] [address] [place], [place] [id number] [facility] [id number] Sherif Gates Self - patient is the insured Medical (General) History Hospitalization History Reason Date(Month/Year) withdrawal from alcohol 05/2024
--- OUTSIDE RECORDS SUMMARY | 2025-01-19 20:36 | XMS_ITS | Clinical Summary ---
Author Organization [facility] Address [address] [place] [address] Phone Care Team Providers Care Irrigation Flume Layer Name Role Phone Unavailable Primary Care Provider Unavailabl e Allergies No known active allergies Medications No known medications Social History Tobacco Use Types Packs/Day Years Used Date Smoking Tobacco: Every Day Cigarettes Tobacco Cessation:Ready to Q uit: Not Asked; Counseling Given: Not Answered Alcohol Use Standard Drinks/Week Comments Yes 0 (1 standard drink = 0.6 oz pur e alcohol) Financial Resource Strain Answer Date R ecorded How hard is it for you to pa y for the very basics like food, housing, medical care, and heating? Very hard 04/01/2023 Food Insecurity Answer Date Recorded In the past 12 months, have you worried that your food would run out before you had money to buy more? Often true 04/01/2023 In the past 12 months, did y ou run out of food and didn't have money to buy more? Often true 04/01/2023 Transportation Needs Answer Date Record ed In the past 12 months, has l ack of transportation kept you from medical appointments or from getting medications? No 05/2023 In the past 12 months, has l ack of transportation kept you from meetings, work, or from getting things needed for daily living? Yes 04/01/2023 Housing Stability Answer Date Recorded In the last 12 months, was t here a time when you were not able to pay the mortgage or rent on time? No 04/01/2023 Number of Times Moved in the Last Year Not on fi le 04/01/2023 Unstable Housing in the Last Year Not on file 04/01/2023 Feeling Safe Answer Date Recorded Are you in a relationship wi th someone who hurts you emotionally and/or physically? No 03/31/2023 Sex and Gender Information Value Date Recorded Sex Assigned at Not on file Legal Sex Male 4:15 PM CDT Gender Identity Not on file Sexual Orientation Not on file Last Filed Vital Signs Vital Sign Reading Time Taken Comments Blood Pressure 109/73 03/31/2023 4:25 PM SENIOR PROCESS ENGINEER Pulse 101 03/31/2023 4:25 PM SENIOR PROCESS ENGINEER Temperature 36.4 C (97.5 F) 03/31/2023 12:35 PM SENIOR PROCESS ENGINEER Respiratory Rate 18 03/31/2023 12:35 PM SENIOR PROCESS ENGINEER Oxygen Saturation 96% 03/31/2023 4:25 PM SENIOR PROCESS ENGINEER Inhaled Oxygen Concentration - - Weight - - Height - - Body Mass Index - - Plan of Treatment Health Maintenance Due Date Last Done Comments HPV VACCINES (1 - 3-dose SCD M series) 10/12/2018 INFLUENZA VACCINE (#1) 2024 DTAP/TDAP/TD VACCINES (7 - T d or Tdap) 03/25/2032 03/25/2022, 10/31/2019, 05/17/1993, Additional history exists HEPATITIS B VACCINES Completed 05/18/1992, 03/02/1992, 1991
[2025-01-19] MEDS: methylPREDNISolone ACETATE 40 MG/ML VIAL 80 MG IM (20:41)
[2025-01-19] MEDS: CYCLOBENZAPRINE HCL 10 MG TABLET PO (20:41)
[2025-01-19] MEDS: traMADol HCL (*CRX) 50 MG TABLET PO (20:41)
[2025-01-19 20:55] VITALS: BP 147/85; PULSE 111; RESP 18; O2SAT 98
== END 2025-01-19 20:55 | disposition home or self-care (01) ==
LOC: CHSED 20:39
PROVIDERS: Emergency Provider Emergency Medicine; PCP Nurse Practitioner Family
DX: S39.012A Strain of muscle, fascia and tendon of lower back, initial encounter (principal); M54.30 Sciatica, unspecified side
CPT/HCPCS: 81003; 96372; 99283; A9270; J1010